=== PATIENT | female | born 1960 | race Caucasian/White ===

== ENCOUNTER 2017-05-14 06:22 | Emergency (ER) | payer BC ==
[~2017-05-14] VITALS: Ht 170.2 cm; Wt 97.2 kg
[~2017-05-14 06:22] MED LIST: ADVAIR 500-501 EACH IH; ADVAIR 500/501 DISK IH; ALBUTEROL17 G1 IH; ASPIRIN E.C.81 M1 PO; AVELOX400 MG PO; CRESTOR5 MG PO; DAILY MULTIPLE1 EACH PO; FISH OIL 1,0001 EAC7 PO; FOLIC ACID1 MG PO; MENOPAUSE SUPPO20 MG PO; MOTRIN800 MG PO; MULTIPLE VITAM1 EAC4 PO; NORCO 5/3251 TABLET PO; SYNTHROID150 MCG PO; Vicodin,Lortab 5/500 PO; ZYRTEC10 M3 PO; ~No Medications
[2017-05-14 06:57] LABS: HEMATOCRIT 36.9 % (36.0-46.0); MCH 28.9 PG (29.0-34.0); MCHC 33.3 G/DL (30.0-36.0); MCV 86.6 FL (83-99); MEAN PLAT.VOLUME 9.2 uM^3 (9.5-12.4); PLATELET COUNT 334 K/uL (156-360); RBC DIS.WIDTH-CV 13.2 % (11.8-14.6); RBC DIS.WIDTH-SD 41.2 % (39-53); RED BLOOD COUNT 4.26 M/uL (3.80-5.20); WHITE BLOOD COUNT 8.5 K/uL (4.1-10.2)
[2017-05-14 07:18] LABS: ANION GAP 8 MEQ/L (2-14); CHLORIDE 109 MEQ/L (99-109); POTASSIUM 4.2 MEQ/L (3.7-5.4); SAMPLE HEMOLYSIS CHECK 0; SAMPLE ICTERIC CHECK 0; SAMPLE LIPEMIA CHECK 0; SODIUM 141 MEQ/L (136-147); TOTAL BILIRUBIN 0.5 MG/DL (0.0-1.0)
[2017-05-14 07:24] LABS: ALKALINE PHOSPHATASE 65 IU/L (3-129); GFR ESTIMATE (CALCULATED) > 59 mL/min/; GLUCOSE 112 mg/dL (70-99); UREA NITROGEN (BUN) 32 mg/dL (9-23)
[2017-05-14] MEDS ORDERED: FLAGYL500 MG PO (08:12)
[2017-05-14] MEDS ORDERED: CIPRO500 MG PO (08:12)
[2017-05-14 08:37] VITALS: BP 113/77
== END 2017-05-14 08:52 | disposition home or self-care (01) ==
LOC: EME 06:22
PROVIDERS: Emergency Medicine
DX: K52.9 Noninfective gastroenteritis and colitis, unspecified (principal); K62.5 Hemorrhage of anus and rectum; Z85.820 Personal history of malignant melanoma of skin; Z90.49 Acquired absence of other specified parts of digestive tract; J45.909 Unspecified asthma, uncomplicated; E78.5 Hyperlipidemia, unspecified
CPT/HCPCS: 80053; 85027; 99281; 99285; J7030